=== PATIENT | female | born 1990 | race Caucasian/White ===

== ENCOUNTER 2017-11-08 18:52 | Inpatient (IN) ==
--- NOTE | 2017-11-08 20:35 | XR ---
EXAM DATE: 11/08/2017 8:23 PM EDT AGE/SEX: 27 years / Female INDICATIONS: . History of pneumonia, cough. CLINICAL DATA: This is the patient's initial encounter. Patient reports that signs and symptoms have been present for 1 day and indicates a pain score of 0/10. MEDICAL/SURGICAL HISTORY: None. None. COMPARISON: No prior exams available for comparison. FINDINGS: Small right effusion. Trace left pleural fluid. Subsegmental right basilar airspace disease. Heart si ze normal. No pneumothorax. CONCLUSION: Subsegmental right basilar airspace disease with small right effusion. This could represent a mild pn eumonia with small amount of parapneumonic fluid. No prior study for comparison. Trace left pleural f luid. Electronically signed by: Villa Hillman MD 11/08/2017 8:33 PM EDT
--- NOTE | 2017-11-08 20:44 | ED ---
HPI General Chief complaint: Weakness Stated complaint: Medical check Up Time Seen by Provider: 11/08/17 19:42 Source: patient Mode of arrival: ambulatory Limitations: no limitations History of Present Illness HPI narrative: Patient is a 27-year-old female presenting to the emergency department for a second opinion. Patient states that she was admitted to the [facility] in [place], [place] one week ago Tuesday. she reports she was diagnosed initially with a UTI then was told she had pneumonia. she reportedly had a SHERYL done that showed an abnormality on the pulmonic valve, possibly vegetation. She states she was told by the infectious disease doctor that her cultures have all come back negative and he did not know what they were continuing to treat her for. He recommended she get a second opinion so she left there AMA last night. Patient continues to feel weak and has a nonproductive cough. She has a history of IV drug use, she states she has not used IV methamphetamines in a few weeks. She denies a significant past medical history. She has no other complaints at this time. Related Data Home Medications Medication Instructions Recorded Confirmed No Known Home Medications 11/08/17 11/08/17 Allergies Allergy/AdvReac Type Severity Reaction Status Date / Time No Known Allergies Allergy Unverified 11/08/17 19:10 Review of Systems ROS: all other systems reviewed are negative [facility] Medical History Medical History delivery delivered (Acute) History of MRSA infection (Acute) IVDU (intravenous drug user) (Acute) Surgical History Surgical History Hx of section (Acute) Social History Social History Substance History: Past History Smoking Status: Former smoker How Often Do You Have a Drink Containing Alcohol: Never Recent Travel in USA within the Last 8 Weeks: No Recent Out of Country Travel within the Last 8 Weeks: No Immunization History Tetanus Immunization: Unsure Hx Influenza Vaccine This Season: No Exam Narrative Exam Narrative: GENERAL: Thin, well-developed, alert female. Presenting in no acute distress. SKIN: Focused skin assessment warm/dry. HEAD: Atraumatic. Normocephalic. EYES: Pupils equal and round. No scleral icterus. No injection or drainage. ENT: No nasal bleeding or discharge. Mucous membranes pink and moist. NECK: Trachea midline. No JVD. CARDIOVASCULAR: Regular rate and rhythm. No murmur appreciated. RESPIRATORY: No accessory muscle use. Diminished in right lower lung field. No wheezes noted. GASTROINTESTINAL: Abdomen soft, non-tender, nondistended. Hepatic and splenic margins not palpable. MUSCULOSKELETAL: No obvious deformities. No clubbing. No cyanosis. No edema. NEUROLOGICAL: Awake and alert. No obvious cranial nerve deficits. Motor grossly within normal limits. Normal speech. PSYCHIATRIC: Appropriate mood and affect; insight and judgment normal. Course Initial Documented Vital Signs Temperature 98.1 F 11/08/17 19:10 Pulse Rate 55 L 11/08/17 19:10 Respiratory Rate 16 11/08/17 19:10 Blood Pressure 139/79 11/08/17 19:10 Pulse Oximetry 99 11/08/17 19:10 Last Documented Vital Signs Temperature 98.1 F 11/08/17 19:10 Pulse Rate 55 L 11/08/17 19:10 Respiratory Rate 16 11/08/17 19:10 Blood Pressure 139/79 11/08/17 19:10 Pulse Oximetry 99 11/08/17 20:08 Medical Decision Making MDM Narrative Medical decision making narrative: Patient is a 27-year-old female presenting to the emergency department for evaluation of possible endocarditis. Patient left AMA from [facility] in to [place]. Basic labs ordered, medical records were requested. CBC shows no acute abnormality. Chemistry with potassium 3.2, oral replacement ordered. Chest x-ray with subsegmental airspace disease could represent mild pneumonia or a small amount of parapneumonic fluid. 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 Infectious disease had patient on vancomycin 1g every 8 hours through 11/19/17 as well as cefepime 1g every 12 hours till 11/15/17. Blood cultures ordered here, first dose of antibiotics were also ordered. Patient was advised on findings and plan of care. Patient is agreeable to stay. Medical Screen Exam Complete: Yes Emergency Medical Condition: Yes Differential Diagnosis Differential Diagnosis: Sepsis versus endocarditis versus UTI versus pneumonia versus metabolic abnormality versus substance abuse versus other Medical Records Medical records reviewed: Yes I reviewed the patient's medical records. Requested from [facility], reviewed. 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 Started on Vancomycin 1g Q8h and Cepfepime 1g q12 hours. Initiated these abx in ED. Lab Data Lab results reviewed: Yes I reviewed the patient's lab results. Result diagrams: 11/08/17 20:40 11/08/17 20:40 POC Results POC Urine Results Negative Lab Results 11/08/17 11/08/17 11/08/17 Range/Units 20:13 20:40 20:40 WBC 8.2 (4.0-11.0) th/mm3 RBC 3.71 L (4.00-5.30) mil/mm3 Hgb 11.1 L (11.6-15.3) gm/dL Hct 33.2 L (35.0-46.0) % MCV 89.5 (80.0-100.0) fL MCH 29.9 (27.0-34.0) pg MCHC 33.5 (32.0-36.0) % RDW 13.9 (11.6-17.2) % Plt Count 458 H (150-450) th/mm3 MPV 7.1 (7.0-11.0) fL Neut % (Auto) 75.1 H (16.0-70.0) % Lymph % (Auto) 18.6 (9.0-44.0) % [place] % (Auto) 4.2 (0.0-8.0) % Eos % (Auto) 1.5 (0.0-4.0) % Baso % (Auto) 0.6 (0.0-2.0) % Neut # (Auto) 6.2 (1.8-7.7) th/mm3 Lymph # (Auto) 1.5 (1.0-4.8) th/mm3 [place] # (Auto) 0.3 (0.0-0.9) th/mm3 Eos # (Auto) 0.1 (0.0-0.4) th/mm3 Baso # (Auto) 0.0 (0.0-0.2) th/mm3 WBC Differential . Differential Comment Auto diff final Sodium 145 (136-145) meq/L Potassium 3.2 L (3.5-5.1) meq/L Chloride 107 (98-107) meq/L Carbon Dioxide 29.5 (21.0-32.0) meq/L Anion Gap 9 (5-15) meq/L BUN 7 (7-18) mg/dL Creatinine 0.68 (0.50-1.00) mg/dL Estimated GFR Greater than 89 (>89) mL/min Random Glucose 86 (74-106) mg/dL Calcium 8.5 (8.5-10.1) mg/dL Total Bilirubin 0.2 (0.2-1.0) mg/dL AST 56 H (15-37) U/L ALT 73 H (10-53) U/L Alkaline Phosphatase 118 H (45-117) U/L Total Protein 7.2 (6.4-8.2) g/dL Albumin 2.7 L (3.4-5.0) g/dL Urine Color Yellow (Yellw/Straw) Urine Clarity Cloudy H (Clear) Urine pH 7.0 (5.0-8.5) Ur Specific [place] 1.015 (1.002-1.035) Urine Protein Negative (Neg-Trace) mg/dL Urine Glucose (UA) Negative (Negative) mg/dL Urine Ketones Negative (Negative) mg/dL Urine Occult Blood Small H (Negative) Urine Nitrate Negative (Negative) Urine Bilirubin Negative (Negative) Urine Urobilinogen Less than 2 (Less than 2) mg/dL Ur Leukocyte Esterase Negative (Negative) Urine RBC 3 (0-3) /hpf Urine WBC 3 (0-5) /hpf Ur Squamous Epith Cells 18 (0-5) /hpf Amorphous Sediment Occasional H (None) /hpf Urine Mucus Few H (Occasional) /lpf Micro UA Comment Culture not ind Ur Microscopic Review Not Reportable Urine Culture Comments Culture not ind Imaging Data Radiologist's impression: Chest X-Ray 11/08/17 19:50 CONCLUSION: Subsegmental right basilar airspace disease with small right effusion. This could represent a mild pneumonia with small amount of parapneumonic fluid. No prior study for comparison. Trace left pleural fluid. Discharge Plan Physicians Team ED Provider: Laura Artis ED Midlevel Provider: Arabella Ramirez Primary Care Provider: UNKNOWN, Rxs /Orders / Referrals /Forms Prescriptions: No Action No Known Home Medications RF: 0 Status ED Status: Admitted Patient
[2017-11-08 20:48] LABS: Amorphous Sediment,Urine Occasional /hpf; Bilirubin,Urine Negative (Negative); Clarity,Urine Cloudy (Clear); Color,Urine Yellow (Yellw/Straw); Glucose,Urine (UA) Negative (Negative); Leukocyte Esterase,Urine Negative (Negative); Mucus,Urine Few /lpf (Occasional); Nitrite,Urine Negative (Negative); Specific Gravity,Urine 1.015 (1.002-1.035); Squamous Epithelial Cell,Urine 18 /hpf (0-5)
[2017-11-08 21:05] LABS: Baso % (Auto) 0.6 % (0.0-2.0); Eos # (Auto) 0.1 th/mm3 (0.0-0.4); Eos % (Auto) 1.5 % (0.0-4.0); Hematocrit 33.2 % (35.0-46.0); Hemoglobin 11.1 gm/dL (11.6-15.3); Lymph # (Auto) 1.5 th/mm3 (1.0-4.8); Lymph % (Auto) 18.6 % (9.0-44.0); Mean Corpuscular HGB Conc 33.5 % (32.0-36.0); Mean Corpuscular Hemoglobin 29.9 pg (27.0-34.0); Mean Corpuscular Volume 89.5 fL (80.0-100.0); Mean Platelet Volume 7.1 fL (7.0-11.0); Mono # (Auto) 0.3 th/mm3 (0.0-0.9); Mono % (Auto) 4.2 % (0.0-8.0); Neut # (Auto) 6.2 th/mm3 (1.8-7.7); Neut % (Auto) 75.1 % (16.0-70.0); Platelet Count 458 th/mm3 (150-450); Red Blood Count 3.71 mil/mm3 (4.00-5.30); Red Cell Distribution Width 13.9 % (11.6-17.2); White Blood Count 8.2 th/mm3 (4.0-11.0)
[2017-11-08 21:19] LABS: Alanine Aminotransferase 73 U/L (10-53); Albumin 2.7 g/dL (3.4-5.0); Anion Gap 9 meq/L (5-15); Aspartate Aminotransferase 56 U/L (15-37); Blood Urea Nitrogen 7 mg/dL (7-18); Calcium 8.5 mg/dL (8.5-10.1); Carbon Dioxide 29.5 meq/L (21.0-32.0); Chloride 107 meq/L (98-107); Glomerular Filtration Rate Greater Than 89 mL/min (>89); Glucose,Random 86 mg/dL (74-106); Potassium 3.2 meq/L (3.5-5.1); Sodium 145 meq/L (136-145)
[2017-11-08 21:22] LABS: Alkaline Phosphatase 118 U/L (45-117); Total Protein 7.2 g/dL (6.4-8.2)
[2017-11-08] MEDS ORDERED: Vancomycin Inj 1 GM/200 ML PIGGYBACK IV.SIG ONE (21:46)
[2017-11-08] MEDS ORDERED: Vancomycin Inj 1,000 MG in Sodium Chlor 0.9% Inj 250 ML IV.SIG ONE (22:00)
[2017-11-08] MEDS ORDERED: Vancomycin Consult Pharmacy OTHER PRN (22:55)
[2017-11-08] MEDS ORDERED: Bisacodyl 10 MG Supp RECTAL PRN (22:56)
[2017-11-08] MEDS ORDERED: Acetaminophen 325 MG Tablet PO PRN (22:56)
[2017-11-08] MEDS ORDERED: Enoxaparin Inj 40 MG/0.4 ML Syringe SQ SCH (23:00)
[2017-11-08] MEDS ORDERED: Potassium Chlor 20 mEq Premix 20 MEQ/100 ML PIGGYBACK IV.SIG ONE (23:32)
--- NOTE | 2017-11-08 23:32 | P.HP ---
History of Present Illness Service: [facility] Primary Care Physician: UNKNOWN History of Present Illness: 27-year-old female with past medical history significant for IV drug abuse presents to the emergency department for further evaluation of her endocarditis. The patient reports she was in [facility]. She was being treated for a urinary tract infection and then was told she had pneumonia. She was scheduled to be discharged however her mother "freaked out" and demanded more testing be done. She had a SHERYL done that showed an abnormality on the pulmonic valve, possibly vegetation. She was started on vancomycin and cefepime. Per patient report, although this is not in the documentation from the outside hospital, she states the infectious disease doctor told her that he did not know why her blood cultures were negative and he was not sure what he was treating. He stated she needed to get a second opinion. The patient then left AGAINST MEDICAL ADVICE last night. She denies any fevers/chills. No chest pain or shortness of breath. No abdominal pain. No nausea/vomiting/diarrhea. Inpatient Certification: I certify that the inpatient services were ordered in accordance with Medicare regulations governing the order. This includes certification that hospital inpatient services are reasonable and necessary and in the case of services not specified as inpatient-only under 42 CFR 419.22(n), that they are appropriately provided as inpatient services in accordance to with the 2-midnight benchmark under 43 CFR 412.3(e) Estimated Total Length of Stay (Days): 5 Plans for Post Hospital Care: Home Review of Systems All other systems reviewed negative except as stated [facility] - History History Provided By: Patient - Medical History Medical History: Medical History (Last Reviewed 11/08/17 @ 23:25 by Aleja Jose MD) delivery delivered History of MRSA infection IVDU (intravenous drug user) - Surgical History Surgical History: Surgical History (Last Reviewed 11/08/17 @ 23:25 by Aleja Jose MD) Hx of section - Family History Family History: Family History (Last Updated 11/08/17 @ 23:27 by Aleja Jose MD) Other Family history normal - Tobacco History Smoking Status: Former smoker - Alcohol History How Often Do You Have a Drink Containing Alcohol: Never - Substance Use History Substance History: Past History - Travel History Recent Travel in the USA Within the Last 8 Weeks: No Recent Travel Out of the Country Within the Last 8 Weeks: No - Immunization History Tetanus Immunization: Unsure Hx Influenza Vaccine This Season: No Medications and Allergies Active Medications: Active Medications Acetaminophen (Tylenol) 650 mg PO Q4H PRN PRN Reason: Temp > 100.4/pain Bisacodyl (Dulcolax Supp) 10 mg RECTAL DAILY PRN PRN Reason: SEVERE CONSITIPATION Enoxaparin Sodium (Lovenox Inj) 40 mg SQ Q24H YARY Cefepime HCl 1,000 mg/ Sodium (Chloride) 100 mls @ 200 mls/hr IV.SIG Q8H YARY Sodium Chloride (Ns Inj) 1,000 mls @ 125 mls/hr IV.CONT .Q8H YARY Vancomycin HCl 1,000 mg/ (Sodium Chloride) 250 mls @ 250 mls/hr IV.SIG Q12H YARY Miscellaneous Information ([facility] Ordered Lab Info) 0 each OTHER ONCE@ 1045 ONE Stop: 11/10/17 10:46 Ondansetron HCl (Zofran Inj) 4 mg IV.PUSH Q6H PRN PRN Reason: NAUSEA OR VOMITING Pharmacy Profile Note (Vancomycin Consult Pharmacy) 1 each OTHER UNSCH PRN PRN Reason: Pharmacy to dose Sennosides (Senokot) 17.2 mg PO Q12H PRN PRN Reason: Moderate Constipation Sodium Chloride (Ns Flush) 2 ml IV.FLUSH PRN PRN PRN Reason: FLUSH AFTER USING IV ACCESS Last Admin: 11/08/17 22:58 Dose: 2 ml Allergies Allergy/AdvReac Type Severity Reaction Status Date / Time No Known Allergies Allergy Unverified 11/08/17 19:10 Home Medications Medication Instructions Recorded Confirmed Type No Known Home Medications 11/08/17 11/08/17 History Exam Vital signs: Vital Signs 11/08/17 19:10 11/08/17 20:08 Temperature 98.1 F Pulse Rate 55 L Respiratory Rate 16 Blood Pressure 139/79 Pulse Oximetry 99 99 Intake & Output 11/08/17 11/08/17 11/09/17 06:59 18:59 06:59 Intake Total 100 / 100 Balance 100 / 100 Weight 54.431 kg Intake: IV 100 / 100 Maxipime Inj 1,000 MG In NS Inj 100 / 100 100 ML @ 200 mls/hr IV.SIG ONCE ONE Rx#:[id number] Narrative: Gen.: No acute distress Head: Normocephalic. Atraumatic. EENT: Pupils equal round and reactive to light. Nose without drainage. Airway intact. Throat without injection. Cardiovascular: Regular rate and rhythm. No murmurs, rubs or gallops. Respiratory: Lungs clear to auscultation bilaterally. No wheezes or rhonchi. Abdomen: Soft, nontender, nondistended. No peritoneal signs. Musculoskeletal: No gross deformities. No edema. Skin: No obvious rashes or erythema. Neuro: Sensory and motor grossly intact. Cranial nerves II through XII grossly intact. Results - Labs CBC & Chem 7: 11/08/17 20:40 11/08/17 20:40 Labs: Laboratory Results - last 24 hr 11/08/17 11/08/17 11/08/17 20:13 20:40 20:40 WBC 8.2 RBC 3.71 L Hgb 11.1 L Hct 33.2 L MCV 89.5 MCH 29.9 MCHC 33.5 RDW 13.9 Plt Count 458 H MPV 7.1 Neut % (Auto) 75.1 H Lymph % (Auto) 18.6 [place] % (Auto) 4.2 Eos % (Auto) 1.5 Baso % (Auto) 0.6 Neut # (Auto) 6.2 Lymph # (Auto) 1.5 [place] # (Auto) 0.3 Eos # (Auto) 0.1 Baso # (Auto) 0.0 WBC Differential . Differential Comment Auto diff final Sodium 145 Potassium 3.2 L Chloride 107 Carbon Dioxide 29.5 Anion Gap 9 BUN 7 Creatinine 0.68 Estimated GFR Greater than 89 Random Glucose 86 Calcium 8.5 Total Bilirubin 0.2 AST 56 H ALT 73 H Alkaline Phosphatase 118 H Total Protein 7.2 Albumin 2.7 L Urine Color Yellow Urine Clarity Cloudy H Urine pH 7.0 Ur Specific [place] 1.015 Urine Protein Negative Urine Glucose (UA) Negative Urine Ketones Negative Urine Occult Blood Small H Urine Nitrate Negative Urine Bilirubin Negative Urine Urobilinogen Less than 2 Ur Leukocyte Esterase Negative Urine RBC 3 Urine WBC 3 Ur Squamous Epith Cells 18 Amorphous Sediment Occasional H Urine Mucus Few H Micro UA Comment Culture not ind Ur Microscopic Review Not Reportable Urine Culture Comments Culture not ind - Imaging Impressions Chest X-Ray 11/08/17 19:50 CONCLUSION: Subsegmental right basilar airspace disease with small right effusion. This could represent a mild pneumonia with small amount of parapneumonic fluid. No prior study for comparison. Trace left pleural fluid. Caprini VTE Risk Assessment Caprini VTE Risk Assessment: No/Low Risk (score <= 1) Caprini Risk Assessment Model: Point Value = 1 Point Value = 2 Point Value = 3 Point Value = 5 Age 41-60 Minor surgery BMI > 25 kg/m2 Swollen legs Varicose veins or History of unexplained or recurrent spontaneous Oral contraceptives or hormone replacement Sepsis (< 1 month) Serious lung disease, including pneumonia (< 1 month) Abnormal pulmonary function Acute myocardial infarction Congestive heart failure (< 1 month) History of inflammatory bowel disease Medical patient at bed rest Age 61-74 Arthroscopic surgery Major open surgery (> 45 min) Laparoscopic surgery (> 45 min) Malignancy Confined to bed (> 72 hours) Immobilizing plaster cast Central venous access Age >= 75 History of VTE Family history of VTE Factor V Leiden Prothrombin [id number] Lupus anticoagulant Anticardiolipin antibodies Elevated serum homocysteine Heparin-induced thrombocytopenia Other congenital or acquired thrombophilia Stroke (< 1 month) Elective arthroplasty Hip, pelvis, or leg fracture Acute spinal cord injury (< 1 month) Prophylaxis Regimen: Total Risk Factor Score Risk Level Prophylaxis Regimen 0-1 Low Early ambulation 2 Moderate Order ONE of the following: *Sequential Compression Device (SCD) *Heparin 5000 units SQ BID 3-4 Higher Order ONE of the following medications: *Heparin 5000 units SQ TID *Enoxaparin/Lovenox 40 mg SQ daily (WT < 150 kg, CrCl > 30 mL/min) *Enoxaparin/Lovenox 30 mg SQ daily (WT < 150 kg, CrCl > 10-29 mL/min) *Enoxaparin/Lovenox 30 mg SQ BID (WT < 150 kg, CrCl > 30 mL/min) AND/OR *Sequential Compression Device (SCD) 5 or more Highest Order ONE of the following medications: *Heparin 5000 units SQ TID (Preferred with Epidurals) *Enoxaparin/Lovenox 40 mg SQ daily (WT < 150 kg, CrCl > 30 mL/min) *Enoxaparin/Lovenox 30 mg SQ daily (WT < 150 kg, CrCl > 10-29 mL/min) *Enoxaparin/Lovenox 30 mg SQ BID (WT < 150 kg, CrCl > 30 mL/min) AND *Sequential Compression Device (SCD) Assessment and Plan - Plan Assessment/plan: 1. ? Endocarditis SHERYL from [facility] showed abnormality on the pulmonic valve, possibly vegetation Patient was seen by infectious disease, on vancomycin 1 g every 8 hours and cefepime 1 g every 12 hours Continue antibiotics Blood cultures pending Infectious disease consulted, appreciate assistance 2. IV drug abuse Cessation counseling provided 3. Hypokalemia Status post p.o. and IV repletion Monitor BMP FEN Regular diet Electrolytes: As above NS at 70 cc/hour
[2017-11-09] MEDS: Sod Chloride 0.9% Inj 1,000 ML IV.CONT SCH ×2 (00:38→12:48)
[2017-11-09] MEDS ORDERED: Melatonin 5 MG Tablet PO ONE (01:30)
[2017-11-09 06:47] LABS: Baso % (Auto) 0.5 % (0.0-2.0); Eos # (Auto) 0.1 th/mm3 (0.0-0.4); Eos % (Auto) 1.3 % (0.0-4.0); Hematocrit 26.8 % (35.0-46.0); Hemoglobin 9.3 gm/dL (11.6-15.3); Lymph # (Auto) 1.9 th/mm3 (1.0-4.8); Lymph % (Auto) 21.5 % (9.0-44.0); Mean Corpuscular HGB Conc 34.8 % (32.0-36.0); Mean Corpuscular Volume 89.1 fL (80.0-100.0); Mean Platelet Volume 7.2 fL (7.0-11.0); Mono # (Auto) 0.5 th/mm3 (0.0-0.9); Mono % (Auto) 5.5 % (0.0-8.0); Neut # (Auto) 6.3 th/mm3 (1.8-7.7); Neut % (Auto) 71.2 % (16.0-70.0); Platelet Count 371 th/mm3 (150-450); White Blood Count 8.8 th/mm3 (4.0-11.0)
[2017-11-09 07:05] LABS: Alanine Aminotransferase 53 U/L (10-53); Albumin 2.3 g/dL (3.4-5.0); Anion Gap 7 meq/L (5-15); Aspartate Aminotransferase 38 U/L (15-37); Blood Urea Nitrogen 7 mg/dL (7-18); Calcium 8.2 mg/dL (8.5-10.1); Carbon Dioxide 27.7 meq/L (21.0-32.0); Chloride 111 meq/L (98-107); Glomerular Filtration Rate Greater Than 89 mL/min (>89); Glucose,Random 64 mg/dL (74-106); Sodium 146 meq/L (136-145)
[2017-11-09 07:08] LABS: Alkaline Phosphatase 90 U/L (45-117); Total Protein 5.9 g/dL (6.4-8.2)
[2017-11-09 09:08] VITALS: RESP 16
--- NOTE | 2017-11-09 10:07 | P.PNIM ---
Subjective Interval history: FU possible endocarditis. Patient resting in bed. Questioning DC with picc line if needed, states she only used IV drugs twice in her life. I explained decision is made from ID. She denies any chest pain or sob. Physical Exam Vital signs: Vital Signs 11/08/17 19:10 11/08/17 20:08 11/08/17 23:25 Temperature 98.1 F Pulse Rate 55 L Respiratory Rate 16 16 Blood Pressure 139/79 Pulse Oximetry 99 99 11/09/17 00:24 11/09/17 00:55 11/09/17 03:49 Temperature 98.1 F 98.6 F Pulse Rate 50 L 53 L 55 L Respiratory Rate 17 17 Blood Pressure 112/59 L 90/50 L Pulse Oximetry 95 96 11/09/17 08:00 Temperature 97.8 F Pulse Rate 53 L Respiratory Rate 16 Blood Pressure 116/68 Pulse Oximetry 97 Intake & Output 11/08/17 11/09/17 11/09/17 18:59 06:59 18:59 Intake Total 1130 / 1130 Balance 1130 / 1130 Weight 62.8 kg Intake: IV 650 / 650 Maxipime Inj 1,000 MG In NS Inj 100 / 100 100 ML @ 200 mls/hr IV.SIG ONCE ONE Rx#:[id number] KCl 20 mEq Premix Inj 20 meq In 100 / 100 100 ml @ 50 mls/hr IV.SIG ONCE ONE Rx#:[id number] Vancomycin Inj 1,000 MG In NS 450 / 450 Inj 250 ML @ 250 mls/hr IV.SIG ONCE ONE Rx#:[id number] Oral 480 / 480 Other: # Voids 1 Date of Last Bowel Movement 11/07/17 # Bowel Movements 0 Weight On Admission 54.431 kg Narrative: GENERAL: This is a well-nourished, well-developed patient, in no apparent distress. CARDIOVASCULAR: Regular rate and rhythm without murmurs, gallops, or rubs. RESPIRATORY: Clear to auscultation. Breath sounds equal bilaterally. No wheezes , rales, or rhonchi. GASTROINTESTINAL: Abdomen soft, non-tender, nondistended. Normal active bowel sounds MUSCULOSKELETAL: Extremities without clubbing, cyanosis, or edema. NEURO: Alert & Oriented x4 to person, place, time, situation. Moves all ext x4 Results - Labs CBC & Chem 7: 11/09/17 05:36 11/09/17 05:36 Laboratory Results - last 24 hr 11/08/17 11/08/17 11/08/17 20:13 20:40 20:40 WBC 8.2 RBC 3.71 L Hgb 11.1 L Hct 33.2 L MCV 89.5 MCH 29.9 MCHC 33.5 RDW 13.9 Plt Count 458 H MPV 7.1 Neut % (Auto) 75.1 H Lymph % (Auto) 18.6 [place] % (Auto) 4.2 Eos % (Auto) 1.5 Baso % (Auto) 0.6 Neut # (Auto) 6.2 Lymph # (Auto) 1.5 [place] # (Auto) 0.3 Eos # (Auto) 0.1 Baso # (Auto) 0.0 WBC Differential . Differential Comment Auto diff final Sodium 145 Potassium 3.2 L Chloride 107 Carbon Dioxide 29.5 Anion Gap 9 BUN 7 Creatinine 0.68 Estimated GFR Greater than 89 Random Glucose 86 Calcium 8.5 Total Bilirubin 0.2 AST 56 H ALT 73 H Alkaline Phosphatase 118 H Total Protein 7.2 Albumin 2.7 L Urine Color Yellow Urine Clarity Cloudy H Urine pH 7.0 Ur Specific [place] 1.015 Urine Protein Negative Urine Glucose (UA) Negative Urine Ketones Negative Urine Occult Blood Small H Urine Nitrate Negative Urine Bilirubin Negative Urine Urobilinogen Less than 2 Ur Leukocyte Esterase Negative Urine RBC 3 Urine WBC 3 Ur Squamous Epith Cells 18 Amorphous Sediment Occasional H Urine Mucus Few H Micro UA Comment Culture not ind Ur Microscopic Review Not Reportable Urine Culture Comments Culture not ind 11/09/17 11/09/17 05:36 05:36 WBC 8.8 RBC 3.00 L Hgb 9.3 L Hct 26.8 L MCV 89.1 MCH 31.0 MCHC 34.8 RDW 14.0 Plt Count 371 MPV 7.2 Neut % (Auto) 71.2 H Lymph % (Auto) 21.5 [place] % (Auto) 5.5 Eos % (Auto) 1.3 Baso % (Auto) 0.5 Neut # (Auto) 6.3 Lymph # (Auto) 1.9 [place] # (Auto) 0.5 Eos # (Auto) 0.1 Baso # (Auto) 0.0 WBC Differential . Differential Comment Auto diff final Sodium 146 H Potassium 4.0 D Chloride 111 H Carbon Dioxide 27.7 Anion Gap 7 BUN 7 Creatinine 0.52 Estimated GFR Greater than 89 Random Glucose 64 L Calcium 8.2 L Total Bilirubin 0.2 AST 38 H ALT 53 Alkaline Phosphatase 90 Total Protein 5.9 L D Albumin 2.3 L Urine Color Urine Clarity Urine pH Ur Specific [place] Urine Protein Urine Glucose (UA) Urine Ketones Urine Occult Blood Urine Nitrate Urine Bilirubin Urine Urobilinogen Ur Leukocyte Esterase Urine RBC Urine WBC Ur Squamous Epith Cells Amorphous Sediment Urine Mucus Micro UA Comment Ur Microscopic Review Urine Culture Comments - Imaging Impressions Chest X-Ray 11/08/17 19:50 CONCLUSION: Subsegmental right basilar airspace disease with small right effusion. This could represent a mild pneumonia with small amount of parapneumonic fluid. No prior study for comparison. Trace left pleural fluid. Assessment and Plan - Plan Possible Endocarditis SHERYL from [facility] showed abnormality on the pulmonic valve, possibly vegetation Patient was seen by infectious disease at , on vancomycin 1 g every 8 hours and cefepime 1 g every 12 hours Continue IV antibiotics Blood cultures pending Infectious disease consulted, appreciate assistance IV drug abuse, patient states only used twice Cessation counseling provided Hypokalemia, resolved Status post p.o. and IV repletion Monitor BMP DVT prophylaxis: Lovenox Discussed Condition With: Patient
[2017-11-09] MEDS ORDERED: Vancomycin Inj 1,000 MG in Sodium Chlor 0.9% Inj 250 ML IV.SIG SCH (11:00)
[2017-11-09 14:17] VITALS: BP 122/71; PULSE 63; TEMP 97.7; O2SAT 99
--- NOTE | 2017-11-09 16:00 | P.AMA ---
AMA Note - AMA Note AMA Statement: Patient Emily Alvarez has decided to leave the hospital against medical advice. This patient has the capacity to refuse care and understands the risks of leaving, including permanent disability and/or , and has had an opportunity to ask questions about his/her condition. The patient has been informed that he/she may return for care at any time, and follow up has been arranged/advised. - AMA Note Discharge Disposition: Against Medical Advice Patient Condition on Discharge: Fair
[2017-11-10] MEDS ORDERED: Pharmacy Ordered Lab Info OTHER ONE (10:45)
== END 2017-11-09 15:55 | disposition left against medical advice (07) ==
LOC: NEPE 18:52 → NEDA 22:06 → N06 23:30
PROVIDERS: ADMIT Hospitalist; ATTEND Hospitalist